=== PATIENT | male | born 1950 | race Caucasian/White ===

== ENCOUNTER → 2017-01-17 | Outpatient (CLI) | payer MEDICARE, BC ==
--- NOTE | 2017-01-17 18:18 | XR ---
EXAMINATION TYPE: XR finger RT DATE OF EXAM: 01/17/2017 5:32 PM COMPARISON: NONE HISTORY: Foreign body TECHNIQUE: 3 views FINDINGS: There is a 5 x 1 mm opacity projected in the soft tissues on the lateral anterior aspect of the distal phalanx of the middle finger right hand consistent with a foreign body. There is no fract ure. There is no dislocation. IMPRESSION: Small bone fragment type foreign body in the soft tissues as above.
== END ==
LOC: RADXRMAIN 16:50
PROVIDERS: ATTEND Family Medicine
DX: S60.452A Superficial foreign body of right middle finger, initial encounter (principal)

== ENCOUNTER → 2017-11-01 | Outpatient (CLI) | payer BC, MEDICARE ==
--- NOTE | 2017-11-01 10:43 | XR ---
EXAMINATION TYPE: XR chest 2V DATE OF EXAM: 11/01/2017 COMPARISON: 12/31/2014. HISTORY: Pre-MRI clearance taking for epicardial wires. TECHNIQUE: Frontal and lateral views of the chest are obtained. FINDINGS: Post CABG changes are seen in the chest, November no linear epicardial pacer leads are iden tified. Sternotomy wires are intact. There is no focal air space opacity, pleural effusion, or pneumo thorax seen. The cardiac silhouette size is within normal limits. The osseous structures are intac t. Moderate degenerative changes of the acromio clavicular joints and thoracic spine are noted. IMPRESSION: No acute cardiopulmonary process. Post CABG changes. No retained epicardial leads are id entified.
== END | disposition home or self-care (01) ==
LOC: RADXRMAIN 09:45
PROVIDERS: ATTEND Orthopaedic Surgery
DX: Z01.818 Encounter for other preprocedural examination (principal)
CPT/HCPCS: 71046

== ENCOUNTER → 2018-07-28 | Outpatient (CLI) | payer MEDICARE, BC ==
[2018-07-28 18:13] LABS: Folate, Serum 18.3 ng/mL
== END | disposition home or self-care (01) ==
LOC: LABWHC1 07:21
PROVIDERS: ATTEND Family Medicine
DX: D75.89 Other specified diseases of blood and blood-forming organs (principal)
CPT/HCPCS: 36415; 82607; 82746

== ENCOUNTER → 2019-03-19 | Outpatient (CLI) | payer BC ==
--- NOTE | 2019-03-19 10:36 | US ---
EXAMINATION TYPE: US kidneys/renal and bladder DATE OF EXAM: 03/19/2019 COMPARISON: NONE CLINICAL HISTORY: N13.2 Hydronephrosis with renal and ureteral.... EXAM MEASUREMENTS: Right Kidney: 10.3 x 4.1 x 4.4 cm Left Kidney: 10.6 x 5.9 x 4.5 cm Right Kidney: No hydronephrosis, nephrolithiasis or masses seen Left Kidney: dromedary hump, no hydronephrosis, nephrolithiasis or masses seen Bladder: wnl Normal Post Void Residual: no, 117.4ml IMPRESSION: 1. No hydronephrosis or nephrolithiasis. 2. There is a post void residual as measured above.
== END ==
LOC: RADUSWWP 09:28
PROVIDERS: ATTEND Family Medicine
DX: N13.2 Hydronephrosis with renal and ureteral calculous obstruction (principal)
CPT/HCPCS: 76770

== ENCOUNTER 2024-01-24 12:36 | Observation (INO) | payer BC, MEDICARE ==
--- NOTE | 2024-01-24 13:05 | ED ---
General Adult HPI - General Chief complaint: Neuro Symptoms/Deficit Stated complaint: Neuro Symptoms, hx of Stroke Time Seen by Provider: 01/24/24 12:47 Source: patient, family, RN notes reviewed Mode of arrival: ambulatory Limitations: no limitations - History of Present Illness Initial comments: Patient is a pleasant 73-year-old male presenting to the emergency department with difficulty finding words. Patient had difficulty reading. Patient had h istory of similar symptoms years ago once. Patient has minimal frontal headache rated 1 or 2/10. Patient did have some blurry vision that has also resolved. Patient is on Eliquis for history of A-fib. No extremity weakness or loss of sensation. - Related Data Home Medications Medication Instructions Recorded Confirmed Aspirin 81 mg PO DAILY 12/06/14 12/31/14 Atorvastatin [Lipitor] 40 mg PO DAILY 12/06/14 12/31/14 Metoprolol Succinate [Toprol XL] 25 mg PO DAILY 12/06/14 12/31/14 Multivitamin/Iron/Folic Acid 1 each PO DAILY 12/06/14 12/31/14 [Centrum Complete Multivit Tab] Rivaroxaban [Xarelto] 20 mg PO DAILY 12/06/14 12/31/14 lisinopriL [Zestril] 10 mg PO DAILY 12/06/14 12/31/14 Hydrocodone/Acetaminophen [[place] 1 each PO Q6HR PRN 12/31/14 12/31/14 5-325] Allergies Allergy/AdvReac Type Severity Reaction Status Date / Time cephalexin monohydrate Allergy Rash/Hives Verified 01/24/24 12:44 [From Keflex] shellfish derived Allergy Swelling Verified 01/24/24 12:44 tape Allergy Rash/Hives Uncoded 01/24/24 12:44 Review of Systems ROS Statement: Those systems with pertinent positive or pertinent negative responses have been documented in the HPI. ROS Other: All systems not noted in ROS Statement are negative. Constitutional: Denies: fever Eyes: Reports: as per HPI. Denies: eye pain ENT: Denies: ear pain Respiratory: Denies: cough Cardiovascular: Denies: chest pain Endocrine: Denies: fatigue Neurological: Reports: as per HPI. Denies: weakness Past Medical History Past Medical History: Atrial Fibrillation Additional Past Medical History / Comment(s): bradycardia, History of Any Multi-Drug Resistant Organisms: None Reported Past Surgical History: Appendectomy, Heart Catheterization Past Psychological History: No Psychological Hx Reported Past Alcohol Use History: Daily Past Drug Use History: None Reported General Exam Limitations: no limitations General appearance: alert, in no apparent distress Head exam: Present: normocephalic Eye exam: Present: normal appearance, PERRL, EOMI ENT exam: Present: normal exam Neck exam: Present: normal inspection Respiratory exam: Present: normal lung sounds bilaterally Cardiovascular Exam: Present: irregular rhythm GI/Abdominal exam: Present: soft. Absent: tenderness Extremities exam: Present: normal inspection Neurological exam: Present: alert, oriented X3, CN II-XII intact. Absent: motor sensory deficit Psychiatric exam: Present: normal affect, normal mood Skin exam: Present: normal color Course Vital Signs 01/24/24 12:39 Temperature 98 F Pulse Rate 62 Respiratory 18 Rate Blood Pressure 163/74 O2 Sat by Pulse 99 Oximetry EKG Findings - EKG Results: EKG: interpreted by ERMD (Left bundle branch block. Nonspecific ST-T.), sinus rhythm, normal axis EKG shows: bradycardia Medical Decision Making - Medical Decision Making Was pt. sent in by a medical professional or institution (, PA, MSW, urgent care, hospital, or shelter...) When possible be specific @ -No Did you speak to anyone other than the patient for history (EMS, parent, family, police, friend...)? What history was obtained from this source @ - is present and helps provide history including onset of symptoms Did you review nursing and triage notes (agree or disagree)? Why? @ -I reviewed and agree with nursing and triage notes Were old charts reviewed (outside hosp., previous admission, EMS record, old EKG, old radiological studies, urgent care reports/EKG's, shelter records)? Report findings @ -Previous chest x-ray reviewed Differential Diagnosis (chest pain, altered mental status, abdominal pain women, abdominal pain men, vaginal bleeding, weakness, fever, dyspnea, syncope, headache, dizziness, GI bleed, back pain, seizure, CVA, palpatations, mental health, musculoskeletal)? @ -Differential Altered Mental Status: Hypoglycemia, DKA, hypercapnia, ETOH, overdose, CO poisoning, trauma, myxedema coma, HTN encephalopathy, infection, encephalitis, psychosis, intercranial hemorrhage, hepatic encephalopathy, meningitis, CVA, this is not meant to be an all-inclusive list EKG interpreted by me (3pts min.). @ -As above X-rays interpreted by me (1pt min.). @ -This x-ray shows postoperative changes. No acute process. CT interpreted by me (1pt min.). @ -CT brain without obvious acute abnormality U/S interpreted by me (1pt. min.). @ -None done What testing was considered but not performed or refused? (CT, X-rays, U/S, labs)? Why? @ -None What meds were considered but not given or refused? Why? @ -None Did you discuss the management of the patient with other professionals (professionals i.e. , PA, MSW, lab, RT, psych nurse, social insurance specialist, coreroom foundry laborer, teacher, information management officer, housing case manager)? Give summary @ -Case discussed with Dr. Graves who will admit his patient. Was smoking cessation discussed for >3mins.? @ -No Was critical care preformed (if so, how long)? @ -No Were there social determinants of health that impacted care today? How? (Homelessness, low income, unemployed, alcoholism, drug addiction, transportation, low edu. Level, literacy, decrease access to med. care, nursing home, rehab)? @ -No Was there de-escalation of care discussed even if they declined (Discuss DNR or withdrawal of care, Hospice)? DNR status @ -No What co-morbidities impacted this encounter? (DM, HTN, Smoking, COPD, CAD, Cancer, CVA, ARF, Chemo, Hep., AIDS, mental health diagnosis, sleep apnea, morbid obesity)? @ -None Was patient admitted / discharged? Hospital course, mention meds given and route, prescriptions, significant lab abnormalities, going to OR and other pertinent info. @ -Patient reevaluated and resting comfortably in bed. Patient and family updated. Patient will be admitted with neuro consult. Admission orders wr itten. Undiagnosed new problem with uncertain prognosis? @ -No Drug Therapy requiring intensive monitoring for toxicity (Heparin, Nitro, Insulin, Cardizem)? @ -No Were any procedures done? @ -No Diagnosis/symptom? @ -TIA Acute, or Chronic, or Acute on Chronic? @ -Acute Uncomplicated (without systemic symptoms) or Complicated (systemic symptoms)? @ -Default Side effects of treatment? @ -No Exacerbation, Progression, or Severe Exacerbation? @ -No Poses a threat to life or bodily function? How? (Chest pain, [place], [place], pneumonia, PE, COPD, DKA, ARF, appy, cholecystitis, CVA, Diverticulitis, Homicidal, Suicidal, threat to staff... and all critical care pts) @ -No - Lab Data Result diagrams: 01/24/24 13:06 01/24/24 13:06 Lab Results 01/24/24 01/24/24 01/24/24 Range/Units 13:06 13:06 13:06 WBC 5.9 (3.8-10.6) k/uL RBC 4.71 (4.30-5.90) m/uL Hgb 15.0 (13.0-17.5) gm/dL Hct 45.0 (39.0-53.0) % MCV 95.6 (80.0-100.0) fL MCH 31.9 (25.0-35.0) pg MCHC 33.3 (31.0-37.0) g/dL RDW 13.0 (11.5-15.5) % Plt Count 143 L (150-450) k/uL MPV 8.0 Neutrophils % 71 % Lymphocytes % 20 % Monocytes % 6 % Eosinophils % 2 % Basophils % 0 % Neutrophils # 4.2 (1.3-7.7) k/uL Lymphocytes # 1.2 (1.0-4.8) k/uL Monocytes # 0.4 (0-1.0) k/uL Eosinophils # 0.1 (0-0.7) k/uL Basophils # 0.0 (0-0.2) k/uL PT 11.0 (10.0-12.5) sec INR 1.0 (<1.2) APTT 27.9 (22.0-30.0) sec Sodium 137 (137-145) mmol/L Potassium 3.9 (3.5-5.1) mmol/L Chloride 105 (98-107) mmol/L Carbon Dioxide 28 (22-30) mmol/L Anion Gap 4 mmol/L BUN 23 H (9-20) mg/dL Creatinine 0.78 (0.66-1.25) mg/dL Est GFR (CKD-EPI)AfAm >90 (>60 ml/min/1.73 sqM) Est GFR (CKD-EPI)NonAf >90 (>60 ml/min/1.73 sqM) Glucose 137 H (74-99) mg/dL Calcium 8.9 (8.4-10.2) mg/dL Total Bilirubin 1.6 H (0.2-1.3) mg/dL AST 33 (17-59) U/L ALT 30 (4-49) U/L Alkaline Phosphatase 95 (38-126) U/L Creatine Kinase 101 (55-170) U/L Total Protein 6.3 (6.3-8.2) g/dL Albumin 3.8 (3.5-5.0) g/dL Disposition Clinical Impression: Transient cerebral ischemia Disposition: ADMITTED IP TO THIS HOSP Is patient prescribed a controlled substance at d/c from ED?: No Referrals: Edgar Graves MD [Primary Care Provider] - 1-2 days Time of Disposition: 14:41
[2024-01-24 13:18] LABS: Basophils % (A) 0 %; Eosinophils # (A) 0.1 k/uL (0-0.7); Eosinophils % (A) 2 %; Lymphocytes # (A) 1.2 k/uL (1.0-4.8); Lymphocytes % (A) 20 %; MCH 31.9 pg (25.0-35.0); MCHC 33.3 g/dL (31.0-37.0); MCV 95.6 fL (80.0-100.0); Monocytes # (A) 0.4 k/uL (0-1.0); Monocytes % (A) 6 %; Neutrophils # (A) 4.2 k/uL (1.3-7.7); Neutrophils % (A) 71 %; Platelet Count 143 k/uL (150-450); RBC 4.71 m/uL (4.30-5.90); WBC 5.9 k/uL (3.8-10.6)
[2024-01-24 13:29] LABS: ALT 30 U/L (4-49); AST 33 U/L (17-59); African American GFR (CKD) >90 (>60 ml/min/1.73 sqM); Albumin 3.8 g/dL (3.5-5.0); Alkaline Phosphatase 95 U/L (38-126); Anion Gap 4 mmol/L; Blood Urea Nitrogen 23 mg/dL (9-20); Calcium 8.9 mg/dL (8.4-10.2); Carbon Dioxide 28 mmol/L (22-30); Chloride 105 mmol/L (98-107); Creatine Kinase 101 U/L (55-170); Glucose 137 mg/dL (74-99); Non-African American GFR(CKD) >90 (>60 ml/min/1.73 sqM); Potassium 3.9 mmol/L (3.5-5.1); Sodium 137 mmol/L (137-145); Total Bilirubin 1.6 mg/dL (0.2-1.3); Total Protein 6.3 g/dL (6.3-8.2)
--- NOTE | 2024-01-24 13:30 | CT ---
EXAMINATION TYPE: CT brain wo con CT DLP: 1095.1 mGycm, Automated exposure control for dose reduction was used. DATE OF EXAM: 01/24/2024 1:21 PM COMPARISON: None. CLINICAL INDICATION:Male, 73 years old with history of Neuro deficit, acute, stroke suspected, Neuro deficit, acute, stroke suspected. Dizziness TECHNIQUE: Brain: Axial CT images of the brain were obtained with coronal and sagittal reformats created and rev iewed. Contrast used: None. Oral contrast used: None. FINDINGS: Brain: Extra-axial spaces: No abnormal extra-axial fluid collections. Ventricular system: Within normal limits Cerebral parenchyma: No acute intraparenchymal hemorrhage or mass effect. The quinonez-white junction is well differentiated. Cerebellum: Unremarkable. Mass effect: No evidence of midline shift. Intracranial vasculature: unremarkable Soft tissues: Normal. Calvarium/osseous structures: No depressed skull fracture. Paranasal sinuses and mastoid air cells: Mild scattered paranasal sinus disease. Visualized orbits: Orbital contents are intact. IMPRESSION: No acute intracranial process.
[2024-01-24 13:37] LABS: Partial Thromboplastin Time 27.9 sec (22.0-30.0)
--- NOTE | 2024-01-24 13:40 | XR ---
EXAMINATION TYPE: XR chest 2V DATE OF EXAM: 01/24/2024 COMPARISON: 11/01/2017 INDICATION: Altered mental status TECHNIQUE: Frontal and lateral views of the chest are obtained. FINDINGS: The heart size is normal. Sternotomy wires are in the midline. The pulmonary vasculature is normal. The lungs are clear. IMPRESSION: 1. No acute pulmonary process.
[2024-01-24] MEDS: ASPIRIN 325 MG TAB PO STA (15:49)
[2024-01-24] MEDS: SODIUM CHLORIDE 0.9% 1,000 ML IV SCH (15:54)
--- NOTE | 2024-01-24 16:24 | US ---
EXAMINATION TYPE: US carotid duplex BILAT DATE OF EXAM: 01/24/2024 COMPARISON: NONE CLINICAL INDICATION: Male, 73 years old with history of Stenosis; Hx Mini stroke 10 years ago TECHNIQUE: Carotid duplex ultrasound examination. Indirect Doppler criteria was utilized. FINDINGS: EXAM MEASUREMENTS: RIGHT: Peak Systolic Velocity (PSV) cm/sec ----- Right CCA: 115 ----- Right ICA: 91 ----- Right ECA: 92 ICA/CCA ratio: 0.8 RIGHT: End Diastole cm/sec ----- Right CCA: 20 ----- Right ICA: 22 ----- Right ECA: 12 LEFT: Peak Systolic Velocity (PSV) cm/sec ----- Left CCA: 69 ----- Left ICA: 81 ----- Left ECA: 72 ICA/CCA ratio: 1.2 LEFT: End Diastole cm/sec ----- Left CCA: 19 ----- Left ICA: 27 ----- Left ECA: 11 VERTEBRALS (direction of flow): Right Vertebral: Antegrade Left Vertebral: Antegrade Rhythm: Normal ELECTRIC WIRER NOTES: No intimal thickening, plaque, or elevated velocities seen IMPRESSION: Less than 50% stenosis of the bilateral carotid bifurcations. Criteria for Assigning % of Stenosis / Diameter reduction (Estimation based on the indirect measurements of the internal carotid artery velocities (ICA PSV). 1. Normal (no stenosis)=ICA PSV < 125 cm/s: ratio < 2.0: ICA EDV<40 cm/s. 2. Less than 50% stenosis=ICA PSV < 125 cm/s: ratio < 2.0: ICA EDV<40 cm/s. 3. 50 to 69% stenosis=ICA PSV of 125 to 230 cm/s: ration 2.0 ? 4.0: ICA EDV 40-100 cm/s. 4. Greater than 70% stenosis to near occlusion= ICA PSV > 230 cm/s: ratio > 4.0: ICA EDV > 100 cm/s. 5. Near occlusion= ICA PSV velocities may be low or undetectable: variable ratio and ICA EDV. 6. Total occlusion=unable to detect flow.
--- NOTE | 2024-01-24 18:37 | CA ---
Transthoracic Echo Report Name: Leonides Ramos Age: 73 Gender: M : 1950 Exam Date: 01/24/2024 16:40 Exam Location: [facility] Ht (in): 67 Wt (lb): 174 Ordering Physician: Elias Hedrick DO Attending/Referring Phys: Structural Manager Karlene Valero RCS Procedure CPT: Indications: Thrombus Cardiac Hx: Technical Quality: Good Contrast 1: Agitated Saline Total Dose (mL): 10 Contrast 2: Total Dose (mL): MEASUREMENTS (Male / Female) Normal Values 2D ECHO LV Diastolic Diameter PLAX 5.1 cm 4.2 - 5.9 / 3.9 - 5.3 cm LV Systolic Diameter PLAX 4.3 cm IVS Diastolic Thickness 1.2 cm 0.6 - 1.0 / 0.6 - 0.9 cm LVPW Diastolic Thickness 0.7 cm 0.6 - 1.0 / 0.6 - 0.9 cm LV Relative Wall Thickness 0.4 RV Internal Dim ED PLAX 3.3 cm LVOT Diameter 2.3 cm LV Diastolic Volume MOD BP 145.0 cm??? 67 - 155 / 56 - 104 cm??? LV Systolic Volume MOD BP 75.3 cm??? 22 - 58 / 19 - 49 cm??? LV Ejection Fraction MOD BP 48.1 % >= 55 % LV Cardiac Index MOD BP 1610.4 cm???/min???m??? LV Diastolic Volume MOD 4C 149.8 cm??? LV Systolic Volume MOD 4C 82.9 cm??? LV Ejection Fraction MOD 4C 44.7 % LV Cardiac Index MOD 4C 1545.6 cm???/min???m??? LV Diastolic Length 4C 9.2 cm LV Systolic Length 4C 7.5 cm LV Diastolic Volume MOD 2C 140.1 cm??? LV Systolic Volume MOD 2C 64.1 cm??? LV Ejection Fraction MOD 2C 54.3 % LV Cardiac Index MOD 2C 1756.2 cm???/min???m??? LV Diastolic Length 2C 9.0 cm LV Systolic Length 2C 8.0 cm LA Volume 81.5 cm??? 18 - 58 / 22 - 52 cm??? LA Volume Index 41.8 cm???/m??? 16 - 28 cm???/m??? DOPPLER AV Peak Velocity 112.1 cm/s AV Peak Gradient 5.0 mmHg AV Mean Velocity 81.9 cm/s AV Mean Gradient 2.9 mmHg AV Velocity Time Integral 25.4 cm LVOT Peak Velocity 102.6 cm/s LVOT Peak Gradient 4.2 mmHg LVOT Velocity Time Integral 21.6 cm LVOT Stroke Volume 87.2 cm??? LVOT Stroke Volume Index 45.8 ml/m??? LVOT Cardiac Index 2014.2 cm???/min???m??? AV Area Cont Eq vti 3.4 cm??? AV Area Cont Eq pk 3.7 cm??? MV Area PHT 3.3 cm??? Mitral E Point Velocity 50.8 cm/s Mitral A Point Velocity 38.9 cm/s Mitral E to A Ratio 1.3 MV Deceleration Time 232.7 ms TR Peak Velocity 235.3 cm/s TR Peak Gradient 22.2 mmHg Right Ventricular Systolic Press 26.4 mmHg PV Peak Velocity 148.7 cm/s PV Peak Gradient 8.8 mmHg FINDINGS Left Ventricle Left ventricular ejection fraction is estimated at 50-55 %. Mildly increased septal wall thickness. Moderately increased left ventricular systolic volume. Mildly decreased left ventricular ejection fraction. Right Ventricle Mild right ventricular dilatation with normal function. Right ventricular systolic pressure within normal limits. No evidence of shunting by bubble study Right Atrium Normal right atrial size. Left Atrium Severely increased left atrial volume. Mitral Valve Structurally normal mitral valve. No evidence for mitral valve prolapse. Mild to moderate mitral regurgitation. No mitral stenosis. Thickened mitral valve leaflets Aortic Valve Trileaflet aortic valve. No aortic valve stenosis or regurgitation. Tricuspid Valve Structurally normal tricuspid valve. No tricuspid stenosis. Mild moderate tricuspid regurgitation. Pulmonic Valve Structurally normal pulmonic valve. No pulmonic stenosis. Trace pulmonic regurgitation. Pericardium No pericardial effusion. Aorta Normal size aortic root and proximal ascending aorta. CONCLUSIONS 1. Borderline left ventricle systolic function 2. Mild to/moderate mitral and tricuspid regurgitation 3. No evidence of shunting by bubble study Previewed by: Dr. Yesenia Jacobo MD (Electronically Signed) Final Date: 24 January 2024 18:37
[2024-01-24] MEDS: ATORVASTATIN 40 MG TAB PO SCH (20:05)
[2024-01-24] MEDS: HEPARIN SODIUM,PORCINE 5,000 UNIT/ML 1 ML VIAL SQ SCH (20:05)
[2024-01-25 08:25] VITALS: RESP 16
[2024-01-25] MEDS: ASPIRIN 325 MG TAB PO SCH (09:18)
[2024-01-25 11:30] LABS: Chol/HDL Ratio 2.22 Ratio; LDL Cholesterol,Calculated 46.8 mg/dL (0.0-131.0); VLDL Calculation 12.04 mg/dL (5.00-40.00)
[2024-01-25] MEDS: MULTIVITAMINS, THERA 1 EACH TAB PO SCH (11:51)
--- NOTE | 2024-01-25 13:20 | HP ---
HISTORY AND PHYSICAL This is a combined history and physical and discharge summary. I am covering for Dr. Graves. CHIEF COMPLAINT: Visual difficulties and difficulty finding a word. HISTORY OF PRESENT ILLNESS: This is a 73-year-old gentleman with a past medical history of multiple medical problems, admitted to the emergency room with difficulty finding words and as well as visual difficulties. The patient has similar symptoms about a year ago. The patient also has had some frontal headaches. The patient is on Eliquis for atrial fibrillation. The MRI has been scheduled today. Otherwise, the patient is nonfocal at this time. There is no history of any fever, rigors, or chills. PAST MEDICAL HISTORY: Reviewed include atrial fibrillation, bradycardia, dose and rest of medications noted. HOME MEDICATIONS: Lisinopril. Dose and rest of medications noted. ALLERGIES: Reviewed and Keflex. FAMILY HISTORY: No history of heart disease or strokes in the family. SOCIAL HISTORY: ETOH daily and previous history of smoking. REVIEW OF SYSTEMS: Fourteen-point review is negative except as mentioned earlier. PHYSICAL EXAMINATION: VITAL SIGNS: Pulse is 52, blood pressure 110/61, respirations 18. CHEST: Clear to auscultation. CARDIOVASCULAR: S1, S2. ABDOMEN: Soft. NERVOUS SYSTEM: Nonfocal. SKIN: No ulcer, rash, bleeding. JOINTS: No active deforming arthropathy. LABORATORY DATA: Reviewed. ASSESSMENT: 1. History of difficulty in speaking, possible acute transient ischemic attack. 2. Atrial fibrillation history. 3. History of bradycardia. 4. History of cardiac catheterization. RECOMMENDATIONS AND DISCUSSION: This is a 73-year-old gentleman presented with multiple medical issues at this time. The basic investigations are negative. Carotid Doppler showed less than 50% stenosis of bilateral carotid bifurcations and a 2D echo showed no acute abnormality. If the Neurology clears and MRI is normal, the patient will be discharged with the following advice and medications. Continue the home medications including Lipitor, Xarelto, and aspirin and follow up with Dr. Graves, Neurology, otherwise stable, but overall prognosis guarded actively and to follow up. MMODL / IJN: [id number] /
--- NOTE | 2024-01-25 14:26 | P.CNNES ---
History of Present Illness Consult date: 01/25/24 Requesting physician: Elias Hedrick Reason for Consult: possible tia History of Present Illness: This is a 73-year-old gentleman who presented emergency department because of visual disturbance and speech difficulty. Patient stated that yesterday at between 11:30 to 12 PM he noticed that the he had tunnel vision and felt his vision was fuzzy on both sides and felt on the periphery of both sides. Then he noticed that the act within a few minutes he did his crossword puzzle then had the one he was reading he could not read the words and attempted to talk to his but was talking nonsensical and he knew what he wanted to say but was not making sense. The episode lasted for a few hours. With this episode he had a headache behind his eyes and felt dull 5/10 currently eats resolved. Denies any photophobia photophobia and nausea or vomiting. He did take aspirin during this episode. 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 He states that he has visual disturbance referring to ocular migraine and which she has tunnel vision and would have a headache behind his eyes about once a year since been going on for 25 years. Patient does have history of TIA in the past about 2011 in which his left hand he had some motor deficits over the left hand which resolved. He does follow up with Dr. Trinh neurologist as an outpatient. Patient is taking aspirin 81 as well as taken the Lipitor. He has a history of A. fib and is on Xarelto. Of note she stated that he had an EEG by Dr. Trinh in 2011 and was reported as normal according to the patient. Some of the workup during his hospital visit consisted of: Serum glucose is 137. TSH is 2.70 Lipid panel is triglycerides 60, cholesterol is 107, LDL is 46 and HDL is 48 CT of the head is reported as no acute intracranial process. I personally reviewed the CT and I agree with the report. Carotid duplex was reported as less than 50% stenosis of the bilateral carotid bifurcation. 2-D echo was reported as a borderline left ventricle systolic function. Mild to moderate mitral tricuspid regurgitation. No evidence of shunting by bubble study. Review of Systems Review of system: The 12 point system was reviewed and apparent positive and negative per HPI. Past Medical History Past Medical History: Atrial Fibrillation Additional Past Medical History / Comment(s): bradycardia, History of Any Multi-Drug Resistant Organisms: None Reported Past Surgical History: Appendectomy, Heart Catheterization Past Psychological History: No Psychological Hx Reported Smoking Status: Former smoker Past Alcohol Use History: Daily Past Drug Use History: None Reported Medications and Allergies Home Medications Medication Instructions Recorded Confirmed Type Atorvastatin [Lipitor] 40 mg PO HS 12/06/14 01/24/24 History Multivitamin/Iron/Folic Acid 1 tab PO DAILY 12/06/14 01/24/24 History [Centrum Complete Multivit Tab] Rivaroxaban [Xarelto] 20 mg PO HS 12/06/14 01/24/24 History Aspirin EC [Ecotrin Low Dose] 81 mg PO DAILY 01/24/24 01/24/24 History lisinopriL [Zestril] 5 mg PO BID 01/24/24 01/24/24 History Allergies Allergy/AdvReac Type Severity Reaction Status Date / Time cephalexin monohydrate Allergy Rash/Hives Verified 01/24/24 14:40 [From Keflex] shellfish derived Allergy Swelling Verified 01/24/24 14:40 tape Allergy Rash/Hives Uncoded 01/24/24 12:44 Physical Examination - Vital Signs Vital Signs: Vital Signs Temp Pulse Pulse Resp BP BP BP 01/25/24 08:00 59 L 16 01/25/24 07:00 97.7 F 59 L 16 131/76 01/25/24 03:05 97.7 F 46 L 15 132/69 01/24/24 22:32 98.0 F 52 L 18 122/67 01/24/24 21:39 18 130/85 01/24/24 21:00 118/75 01/24/24 20:00 117/63 01/24/24 19:43 18 117/63 01/24/24 19:00 78 18 125/72 01/24/24 18:00 124/71 01/24/24 17:00 123/75 01/24/24 16:00 121/71 01/24/24 15:00 50 L 18 120/88 Pulse Ox 01/25/24 08:00 01/25/24 07:00 97 01/25/24 03:05 99 01/24/24 22:32 97 01/24/24 21:39 01/24/24 21:00 01/24/24 20:00 01/24/24 19:43 01/24/24 19:00 98 01/24/24 18:00 01/24/24 17:00 01/24/24 16:00 01/24/24 15:00 Intake and Output 01/24/24 01/25/24 01/25/24 22:59 06:59 14:59 Intake Total 420 Balance 420 Intake: Oral 420 Other: # Voids 1 Weight 77.5 kg GENERAL: The patient is lying in bed and is not in acute distress. NEUROLOGICAL: Higher mental function: The patient is awake, alert, oriented to self, place and time. Patient is following commands. No aphasia and no neglect. Cranial nerves: The pupils are round, equal and reactive to light and accommodation. Visual kuo are full to confrontation throughout. Extraocular movement is intact no nystagmus is noted. Facial sensation is normal to touch throughout. The facial strength is normal throughout. Hearing is normal bilaterally to hand rub. Tongue is midline and moved [id number] without any difficulty. No dysarthria is noted. Shoulder shrug is normal bilaterally. Motor: The strength is 5 over 5 throughout. Normal tone and bulk. Cerebellum: Normal finger to nose heel to balbuena bilaterally. Sensation: Sensation is normal to touch throughout. Reflexes (right/left):2+ throughout. Plantars are downgoing bilaterally. Results - Laboratory Findings CBC and BMP: 01/24/24 13:06 01/24/24 13:06 Abnormal Lab Findings: Abnormal Labs 01/24/24 01/24/24 13:06 13:06 Plt Count 143 L BUN 23 H Glucose 137 H Total Bilirubin 1.6 H Assessment and Plan Assessment: This is a 73-year-old gentleman who presents yesterday to the emergency department because of visual disturbance and that speech difficulty. Episode lasted for a few hours. Episode of visual disturbance with aphasia seems likely due to transient ischemic attack. History of TIA in 2012 History of ocular migraine but has an episode once per year History of atrial fibrillation on Xarelto History of CABG Plan: I ordered MRI of the brain. Patient is on home medication of Xarelto and aspirin. Recommended to switch from aspirin to Plavix because of concern of the TIA since that seems he failed aspirin but patient stated that he'll hold off and he'll speak with his door technician as an outpatient regarding this which. He is on Lipitor 40 mg daily at bedtime Continue neuro checks Cardiac monitoring PT OT and FORKLIFT TECHNICIAN are consulted We'll defer the rest of the medical measure the primary team For DVT prophylaxis the patient is on Xarelto Upon discharge, she was notified to continue follow-up with his neurologist Dr. Trinh as an outpatient within the 2-3 weeks The plan was discussed with the patient and his nurse. Thank you for the consultation Time with Patient: Greater than 30
[2024-01-25 17:01] VITALS: BP 108/62; PULSE 49; TEMP 98.6
--- NOTE | 2024-01-25 18:15 | MR ---
EXAMINATION TYPE: MR brain wo con DATE OF EXAM: 01/25/2024 5:13 PM CLINICAL INDICATION:Male, 73 years old with history of stroke.; [facility], Stroke COMPARISON: 01/24/2024. TECHNIQUE: Multi planar, multi sequence imaging was performed through the brain including: T1, T2, In version recovery, Diffusion weighted imaging, and gradient echo imaging. No gadolinium was given. FINDINGS: Mild cerebral atrophy with proportional dilation of ventricular system. Scattered foci of high T2 s ignal intensity are seen within the periventricular white matter. Midline structures show no abnormal ity. Diffusion-weighted imaging shows no evidence of restricted diffusion. The susceptibility weighte d images do not reveal any evidence for micro-hemorrhage. The bone marrow signal is within normal limits. Paranasal sinuses and mastoid air cells: No significant paranasal sinus disease. Visualized orbits: Orbital contents are intact. IMPRESSION: 1. No evidence of intracranial mass or acute/subacute infarct. 2. Nonspecific white matter changes, likely secondary to small vessel ischemic disease.
[2024-01-25] MEDS ORDERED: lisinopriL 5 MG TAB PO SCH (21:00)
[2024-01-25] MEDS ORDERED: RIVAROXABAN 20 MG TAB PO SCH (21:00)
== END 2024-01-25 18:58 | disposition home or self-care (01) ==
LOC: EC 12:36 → 6NMEDSUR 14:43
PROVIDERS: ADMIT Family Medicine; ATTEND Family Medicine
DX: H53.483 Generalized contraction of visual field, bilateral (principal); R47.01 Aphasia; I65.23 Occlusion and stenosis of bilateral carotid arteries; I48.91 Unspecified atrial fibrillation; I08.1 Rheumatic disorders of both mitral and tricuspid valves; I44.7 Left bundle-branch block, unspecified; Z79.01 Long term (current) use of anticoagulants; Z79.82 Long term (current) use of aspirin; Z79.899 Other long term (current) drug therapy; Z88.1 Allergy status to other antibiotic agents; Z91.013 Allergy to seafood; Z91.048 Other nonmedicinal substance allergy status; Z95.1 Presence of aortocoronary bypass graft; Z87.891 Personal history of nicotine dependence; Z86.69 Personal history of other diseases of the nervous system and sense organs; Z86.73 Personal history of transient ischemic attack (TIA), and cerebral infarction without residual deficits
CPT/HCPCS: 96361 ×3; 96372 ×2; 96360; 99285; 36415; 93005; 93306; 97161; 97165; 80061; 80053; 84443; 82550; 85025; 85610; 85730; 71046; 93880; 70450; 70551; G0378 ×2; J1644 ×2

== ENCOUNTER → 2025-02-12 | Outpatient (CLI) | payer MEDICARE | END | disposition home or self-care (01) | LOC: LABWHC1 07:14 | PROVIDERS: ATTEND Urology | DX: R97.20 Elevated prostate specific antigen [PSA] (principal) | CPT/HCPCS: 36415; 84153 ==